=== PATIENT | female | born 2000 | race Two or more races ===

== ENCOUNTER 2023-06-10 08:15 | Inpatient (IN) | payer OTHER ==
[~2023-06-10] VITALS: Ht 162.6 cm; Wt 2.7 kg
[2023-06-10 10:39] LABS: HEMATOCRIT 33.4 % (36.0-45.00); HEMOGLOBIN 10.7 g/dL (12.0-15.00); MEAN CELL VOLUME 78.4 fL (80.00-100.00); MEAN CORPUSCULAR HGB CONC 31.9 g/dl (32.0-36.0); PLATELET COUNT 275 K/uL (150-450); RED BLOOD COUNT 4.26 M/uL (4.00-6.00)
[2023-06-10 11:00] LABS: PARTIAL THROMBOPLASTIN TIME 31.3 SECONDS (22.0-34.0)
[2023-06-10 11:05] LABS: ALBUMIN 2.3 gm/dL (3.4-5.0); BILIRUBIN TOTAL 0.45 mg/dL (0.3-1.2); CALCIUM 8.6 mg/dL (8.5-10.1); CREATININE SERUM 0.43 mg/dL (0.55-1.02); GFR 180.4; GLOBULINA 3.7 G/DL (2.4-3.5); POTASSIUM 4.52 mEq/L (3.5-5.1)
[2023-06-13] MEDS ORDERED: CHILDREN'S ASPI81 MG PO (07:10)
[2023-06-13] MEDS ORDERED: PRENATAL 19 CH1 EAC1 PO (07:11)
[2023-06-14 02:27] LABS: HEMATOCRIT 35.2 % (36.0-45.00); MEAN CELL VOLUME 78.3 fL (80.00-100.00); MEAN CORPUSCULAR HGB CONC 31.6 g/dl (32.0-36.0); PLATELET COUNT 272 K/uL (150-450); RED CELL DISTRIBUTION WIDTH 14.1 % (11.5-14.5)
[2023-06-14 02:31] LABS: HEMOGLOBIN 11.1 g/dL (12.0-15.00); MEAN CORPUSCULAR HEMOGLOBIN 24.6 pg (27.00-32.0)
[2023-06-14 06:34] LABS: ABG PH 7.314 (7.35-7.45); ABG PO2 68.9 mmHg (80-100); ABG pCO2 42.7 mmHg (35-45); BASE EXCESS -4.8 mmol/l; BICARBONATE 21.2 mmol/l (23-25); SaO2 91.3 %
[2023-06-16] MEDS ORDERED: COLACE100 MG PO (08:03)
[2023-06-16] MEDS ORDERED: SIMETHICONE125 M1 PO (08:04)
[2023-06-16] MEDS ORDERED: IBU800 MG PO (08:04)
== END 2023-06-16 14:52 | disposition home or self-care (01) | DRG 785 ==
LOC: O/R 06-13 06:46 → OB/GYN 06-13 08:15
PROVIDERS: ADMIT Specialist; ATTEND Specialist
PROC: 0UB70ZZ Excision of Bilateral Fallopian Tubes, Open Approach (ICD-10-PCS; 2023-06-13)
PROC: 4A1HXCZ Monitoring of Products of Conception, Cardiac Rate, External Approach (ICD-10-PCS; 2023-06-13)
PROC: 10D00Z1 Extraction of Products of Conception, Low, Open Approach (ICD-10-PCS; principal; 2023-06-13 15:15)
DX: O34.211 Maternal care for low transverse scar from previous cesarean delivery (principal); O99.824 Streptococcus B carrier state complicating childbirth; Z3A.38 38 weeks gestation of pregnancy; Z37.0 Single live birth; Z20.822 Contact with and (suspected) exposure to COVID-19; Z30.2 Encounter for sterilization